=== PATIENT | male | born 1970 | race Caucasian/White ===

== ENCOUNTER → 2016-12-21 | Outpatient (CLI) | payer BC ==
[~2016-12-21] MED LIST: MULT-506 PO
--- NOTE | 2016-12-21 09:10 | DIAGNOSTIC IMAGING REPORT ---
ABDOMEN COMPLETE (US) CLINICAL HISTORY: Hemochromatosis. COMPARISON STUDY: Right upper quadrant ultrasound August 31, 2006. FINDINGS: Liver morphology is normal. There is a 1.1 cm left hepatic lobe cyst. There is no biliary ductal dilatation. The common bile duct measures 5 mm in caliber. There are multiple stones within the gallbladder. Gallbladder wall thickness is at the upper limits of normal. The pancreas is obscured by overlying bowel gas. The size of the spleen is at the upper limits of normal, measuring 12.7 cm in maximal dimension. The right kidney measures 11.3 x 5.9 x 5.9 cm and the left measures 12.2 x 6.5 x 6.2 cm. There is no hydronephrosis. No calculi or masses are identified. The abdominal aorta was partially obscured but visualized portions were normal in caliber. IMPRESSION: 1. Normal liver morphology. No suspicious hepatic lesions by sonography. 1.1 cm hepatic cyst. 2. Cholelithiasis. No gallbladder wall thickening. 3. No biliary ductal dilatation. 4. Obscured pancreas. Electronically signed by: Justino Courtney M.D. 12/21/2016 9:09 AM Dictated Date/Time: 12/21/2016 9:05 AM
== END | disposition home or self-care (01) ==
LOC: C.ULTR 08:36
PROVIDERS: ATTEND Nurse Practitioner Family
DX: E83.119 Hemochromatosis, unspecified (principal); K76.89 Other specified diseases of liver; K80.20 Calculus of gallbladder without cholecystitis without obstruction